=== PATIENT | female | born 1990 | race Asian ===

== ENCOUNTER 2016-11-29 05:09 | Emergency (ER) | payer OTHER ==
[~2016-11-29] VITALS: Ht 157.5 cm; Wt 65.3 kg
[2016-11-29 05:13] VITALS: BP 118/69
--- NOTE | 2016-11-29 05:17 | NUR ---
26 Y/O F HERE W/C/O VAGINAL BLEEDING, AND NAUSEA X MTHS. NO S/S OF DISTRESS NOTED AT THIS TIME. ER MD AWARED OF IT.
--- NOTE | 2016-11-29 05:18 | NUR ---
Patient being evaluated by DR. HIRSCH at bedside.
--- NOTE | 2016-11-29 05:19 | NUR ---
PT TAKEN FOR ULTRASOUND.
[2016-11-29] MEDS ORDERED: NACL 0.9% 1,000 ML IV ONE (05:45)
--- NOTE | 2016-11-29 06:50 | NUR ---
Patient discharged with v/s stable. Written and verbal after care instructions given and explained. Patient verbalized understanding. Ambulatory with steady gait. All questions addressed prior to discharge. Advised to follow up with PMD.
[2016-11-29 06:51] VITALS: BP 120/70
== END 2016-11-29 06:50 | disposition home or self-care (01) ==
LOC: MED 05:09
DX: N93.8 Other specified abnormal uterine and vaginal bleeding (principal)
CPT/HCPCS: 36415; 76856; 84702; 96360; 99285; J7030